=== PATIENT | male | born 1975 | race Caucasian/White ===

== ENCOUNTER 2018-03-25 10:02 | Inpatient (IN) | payer OTHER ==
[2018-03-25 11:32] VITALS: BMI 31.8
--- NOTE | 2018-03-25 15:17 | HP ---
"COWS - Scale Resting Pulse: 0= CO 80 or Below Sweatin= Beads of Sweat on Face Restless Observation: 1= Difficult to Sit Still Pupil Size: 2= Moderately Dilated Bone or Joint Aches: 1= Mild Discomfort Runny Nose/ Eye Tearin= None GI Upset > 30mins: 2= Nausea/Diarrhea Tremor Observation: 2= Slight Tremor Visible Yawning Observation: 1= 1-2x During Session Anxiety or Irritability: 1=Feels Anxious/Irritable Goose Flesh Skin: 0=Smooth Skin COWS Score: 13 CIWA Score - CIWA Score Nausea/Vomitin-Mild Nausea/No Vomiting Muscle Tremors: 4-Moderate,w/Arms Extend Anxiety: 1-Mildly Anxious Agitation: 1-Slight > Activity Paroxysmal Sweats: 4-Forehead w/Sweat Beads Orientation: 0-Oriented Tacttile Disturbances: 0-None Auditory Disturbances: 0-None Visual Disturbances: 0-None Headache: 2-Mild (r/t withdrawal) CIWA-Ar Total Score: 13 Admission ROS S - HPI Chief Complaint: Here for heroin and benzo street use. Allergies/Adverse Reactions: Allergies Allergy/AdvReac Type Severity Reaction Status Date / Time Fish Containing Products Allergy Severe Swelling Verified 03/25/18 13:09 No Known Drug Allergies Allergy Verified 03/25/18 16:13 History of Present Illness: Heroin use started at age 15. Currently uses IV. States does not share needles or works. Xanax use began at age 28 and Cocaine use began at age 34. Denies alcohol use. has been able to maintain sobriety x 2 years by avoiding people, places, things. Goal post discharge is rehab and out-patient meetings. Denies significant PMH. Search Terms: Abimael Benjamin, 1975 Search Date: 03/25/2018 03:13:47 PM The Drug Utilization Report below displays all of the controlled substance prescriptions, if any, that your patient has filled in the last twelve months. The information displayed on this report is compiled from pharmacy submissions to the Department, and accurately reflects the information as submitted by the pharmacies. This report was requested by: Nakita Peña | Reference #: [id number] There are no results for the search terms that you entered. x - Ebola screening Have you traveled outside of the country in the last 21 days: No Have you had contact with anyone from an Ebola affected area: No Have you been sick,other than usual withdrawal symptoms: No Do you have a fever: No - Review of Systems Constitutional: Chills, Diaphoresis, Changes in sleep (Difficulty falling asleep x years.) EENT: reports: Dental Problems (Missing teeth. Chews and swallow ok.) Respiratory: reports: No Symptoms reported, Other (Asthma as a child. No exacerbations in years.) Cardiac: reports: No Symptoms Reported GI: reports: Nausea (r/t withdrawal), Abdominal cramping (r/t withdrawal) : reports: No Symptoms Reported Musculoskeletal: reports: Back Pain (r/t withdrawal) Integumentary: reports: No Symptoms Reported Neuro: reports: Tremors (r/t withdrawal) Endocrine: reports: No Symptoms Reported Hematology: reports: No Symptoms Reported Psychiatric: reports: Orientated x3, Agitated, Anxious, Depressed (Depression for years. Denies thoughts of harming self or others.) Patient History - Patient Medical History Hx Asthma: Yes (As a child. ) Hx Chronic Obstructive Pulmonary Disease (COPD): No Hx Cardiac Disorders: No Hx Hypertension: No Hx Seizures: No Hx Diabetes: No Hx Gastrointestinal Disorders: No Hx Genitourinary Disorders: No Hx Sexually Transmitted Disorders: No Hx Renal Disease (ESRD): No Hx Depression: No Hx Suicide Attempt: No Hx Schizophrenia: No - Patient Surgical History Past Surgical History: No - PPD History Previous Implant?: Yes Documented Results: Negative w/o proof Implanted On Prior R Admission?: No PPD to be Administered?: Yes - Smoking Cessation Smoking history: Current every day smoker Have you smoked in the past 12 months: Yes Aproximately how many cigarettes per day: 20 Hx Chewing Tobacco Use: No Initiated information on smoking cessation: Yes 'Breaking Loose' booklet given: 03/25/18 - Substance & Tx. History Hx Alcohol Use: No Hx Substance Use: Yes Substance Use Type: Cocaine, Heroin, Opiates, Tranquilizers (Xanax) Hx Substance Use Treatment: Yes (Last detox 3 months ago) - Substances Abused Heroin Route: Injection Frequency: Daily Amount used: 20 BAGS Age of first use: 15 Date of Last Use: 03/24/18 (12 noon) Alprazolam (Xanax) Route: Oral Frequency: Daily Amount used: 4-6MG Age of first use: 38 Date of Last Use: 03/24/18 (12 noon) Cocaine Route: Inhalation Frequency: Daily Amount used: 1/2 GRAM Age of first use: 34 Date of Last Use: 03/24/18 Non-Rx Methadone Route: Oral Frequency: 1-3 times last 30 days Amount used: 130 mg Age of first use: 38 Date of Last Use: 03/23/18 (12 noon) Admission Physical Exam [facility] - Vital Signs Vital Signs: Vital Signs - 24 hr 03/25/18 11:30 Temperature 98.1 F Pulse Rate 62 Respiratory 20 Rate Blood Pressure 98/60 - Physical General Appearance: Yes: Mild Distress, Tremorous, Irritable, Sweating, Anxious HEENTM: Yes: EOMI, Hearing grossly Normal, JULIANNA (Pupils at 5 mm), Rhinorrhea ( mild clear nasal discharge) Respiratory: Yes: Chest Non-Tender, Lungs Clear, Normal Breath Sounds, No Respiratory Distress Neck: Yes: No masses,lesions,Nodules, Supple Breast: Yes: Breast Exam Deferred Cardiology: Yes: Regular Rhythm, Regular Rate, S1, S2 Abdominal: Yes: Non Tender, Soft, Increased Bowel Sounds Genitourinary: Yes: Within Normal Limits Back: Yes: Normal Inspection Musculoskeletal: Yes: full range of Motion, Gait Steady Extremities: Yes: Normal Capillary Refill, Normal Range of Motion, Tremors (of hands w/ arms extended) Neurological: Yes: supervisor policy change clerks II-XII NML intact, Motor Strength 5/5, Normal Response Integumentary: Yes: Normal Color, Dry (Except for sweat on forehead), Warm, Track Franks (Old and new. No increased warmth or tenderness at injection sites.) Lymphatic: Yes: Within Normal Limits - Diagnostic (1) Nicotine dependence, uncomplicated Current Visit: Yes Status: Chronic Qualifiers: Nicotine product type: cigarettes Qualified Code(s): F17.210 - Nicotine dependence, cigarettes, uncomplicated (2) Opioid dependence with withdrawal Current Visit: Yes Status: Acute (3) Benzodiazepine withdrawal without complication Current Visit: Yes Status: Acute (4) Cocaine dependence, uncomplicated Current Visit: Yes Status: Chronic Cleared for Admission [facility] - Detox or Rehab [facility] Level of Care: Medically Managed Detox Regimen/Protocol: Methadone/Valium [facility] Breath Alcohol Content Breath Alcohol Content: 0 Urine Drug Screen - Results Drug Screen Negative: No Urine Drug Screen Results: RACQUEL-Cocaine, OPI-Opiates, BZO-Benzodiazepines, MTD- Methadone, OXY-Oxycodone"
[2018-03-25] MEDS ORDERED: P-EPHED 60MG/TRIPROLIDI 2.5MG TABLET PO PRN (15:42)
[2018-03-25] MEDS ORDERED: MENTHOL/PHENOL 1 EACH UD MM PRN (15:42)
[2018-03-25] MEDS ORDERED: LOPERAMIDE HCL 2 MG CAPSULE PO PRN (15:42)
[2018-03-25] MEDS ORDERED: NICOTINE POLACRILEX 2 MG GUM BC PRN (15:42)
[2018-03-25] MEDS ORDERED: guaiFENesin/D-METHORPHAN HB 10 ML UNIT-DOSE CUPS PO PRN (15:42)
[2018-03-25] MEDS ORDERED: IBUPROFEN 400 MG TABLET (FP) PO PRN (15:42)
[2018-03-25] MEDS ORDERED: ACETAMINOPHEN 325 MG TABLET (FP) PO PRN (15:42)
[2018-03-25] MEDS ORDERED: MAGNESIUM HYDROX 2400MG/30ML ORAL SUSPENSION 30 ML CUP PO PRN (15:42)
[2018-03-25] MEDS ORDERED: MAG HYDROX/AL HYDROX/SIMETH 30 ML UNIT-DOSE CUP PO PRN (15:42)
[2018-03-25] MEDS ORDERED: MAGNESIUM CITRATE 300 ML BOTTLE PO PRN (15:42)
[2018-03-25] MEDS ORDERED: METHADONE HCL 10 MG TABLET (FOR DETOX USE ONLY) PO ONE ×2 (17:45→23:00)
[2018-03-25] MEDS ORDERED: diazePAM 5 MG TABLET PO ONE (17:45)
[2018-03-25] MEDS ORDERED: MELATONIN 5 MG TABLETS PO PRN (22:00)
[2018-03-25] MEDS: diazePAM 5 MG TABLET PO SCH (22:15)
[2018-03-25] MEDS: THIAMINE HCL 100 MG TABLET (FP) PO SCH (22:15)
[2018-03-26 02:00] LABS: URINE APPEARANCE TURBID; URINE BILIRUBIN NEGATIVE (<2.0 mg/dL); URINE COLOR YELLOW; URINE GLUCOSE (UA) NEGATIVE (NEGATIVE); URINE KETONE NEGATIVE (NEGATIVE); URINE LEUK ESTERASE NEGATIVE (NEGATIVE); URINE NITRITE NEGATIVE (NEGATIVE); URINE PROTEIN NEGATIVE (NEGATIVE); URINE UROBILINOGEN NEGATIVE mg/dL (0.2-1.0)
[2018-03-26] MEDS: diazePAM 5 MG TABLET PO SCH ×3 (05:16→22:41)
[2018-03-26] MEDS ORDERED: METHADONE HCL 10 MG TABLET (FOR DETOX USE ONLY) PO SCH (10:00)
--- NOTE | 2018-03-26 10:28 | EKG ---
Test Reason : Blood Pressure : / mmHG Vent. Rate : 049 BPM Atrial Rate : 049 BPM P-R Int : 186 ms QRS Dur : 094 ms QT Int : 468 ms P-R-T Axes : 056 055 032 degrees QTc Int : 422 ms SINUS BRADYCARDIA WITH SINUS ARRHYTHMIA OTHERWISE NORMAL ECG NO PREVIOUS ECGS AVAILABLE Confirmed by JULIA TRUONG, GREGORIO ([id number]) on 03/26/2018 10:28:22 AM Referred By: Confirmed By:GREGORIO DUMONT MD
[2018-03-26] MEDS: NICOTINE 21 MG/24 HOURS TOPICAL PATCH TD SCH (10:35)
[2018-03-26] MEDS: PRENATAL VITAMINS W/ FOLIC ACID TABLET (FP) PO SCH (10:35)
[2018-03-26 11:03] LABS: HEMATOCRIT 39.2 % (35.4-49); HEMOGLOBIN 13.1 GM/dL (11.7-16.9); MCH 31.8 pg (25.7-33.7); MCHC 33.5 g/dl (32.0-35.9); MEAN CELL VOLUME 94.9 fl (80-96); MEAN PLT VOLUME 9.8 fl (7.5-11.1); PLATELET COUNT 207 K/MM3 (134-434); RBC 4.13 M/mm3 (4.00-5.60); RDW 13.6 % (11.9-15.9); WHITE BLOOD COUNT 7.5 K/mm3 (4.0-10.0)
[2018-03-26 11:10] LABS: CHLORIDE 101 mmol/L (98-107); SODIUM 140 mmol/L (136-145)
[2018-03-26 11:25] LABS: ALBUMIN 3.6 g/dl (3.4-5.0); ALK PHOS 52 U/L (45-117); ANION GAP 10 MMOL/L (8-16); BILIRUBIN,TOTAL 0.7 mg/dL (0.2-1.0); BLOOD UREA NITROGEN 19 mg/dL (7-18); CALCIUM 8.7 mg/dL (8.5-10.1); CO2 29 mmol/L (21-32); CREATININE 1.1 mg/dL (0.7-1.3); GLUCOSE,RANDOM 80 mg/dL (74-106); SGOT/AST 42 U/L (15-37); SGPT/ALT 25 U/L (12-78); TOT PROT 7.3 g/dl (6.4-8.2)
--- NOTE | 2018-03-26 12:14 | PN ---
[facility] CIWA - CIWA Score Nausea/Vomitin Muscle Tremors: 3 Anxiety: 3 Agitation: 2 Paroxysmal Sweats: 1-Minimal Palms Moist Orientation: 0-Oriented Tacttile Disturbances: 1-Very Mild Itch/Numbness Auditory Disturbances: 1-Very Mild Visual Disturbances: 0-None Headache: 2-Mild CIWA-Ar Total Score: 16 [facility] COWS - Scale Resting Pulse: 0= ID 80 or Below Sweatin= Chills/Flushing Restless Observation: 3= Extraneous Movement Pupil Size: 1= Pupils >than Normal Bone or Joint Aches: 2= Severe Diffuse Aches Runny Nose/ Eye Tearin= Runny Nose/Eyes GI Upset > 30mins: 2= Nausea/Diarrhea Tremor Observation of Outstretched Hands: 2= Slight Tremor Visible Yawning Observation: 1= 1-2x During Session Anxiety or Irritability: 2=Irritable/Anxious Goose Flesh Skin: 0=Smooth Skin COWS Score: 16 [facility] Progress Note (SOAP) Subjective: alert,irritable,anxious,tremor,pain in the body and back Objective: 03/26/18 12:09 Vital Signs Temperature 98.1 F 03/26/18 11:26 Pulse Rate 55 L 03/26/18 11:26 Respiratory Rate 18 03/26/18 11:26 Blood Pressure 116/70 03/26/18 11:26 O2 Sat by Pulse Oximetry (%) ekg sinus bradycardia with sinus arrhythmia rate 49 qt/qtc 468/422 no chest pain,no sob,no dizziness Laboratory Last Values WBC 7.5 K/mm3 (4.0-10.0) 03/26/18 06:00 RBC 4.13 M/mm3 (4.00-5.60) 03/26/18 06:00 Hgb 13.1 GM/dL (11.7-16.9) 03/26/18 06:00 Hct 39.2 % (35.4-49) 03/26/18 06:00 MCV 94.9 fl (80-96) 03/26/18 06:00 MCH 31.8 pg (25.7-33.7) 03/26/18 06:00 MCHC 33.5 g/dl (32.0-35.9) 03/26/18 06:00 RDW 13.6 % (11.9-15.9) 03/26/18 06:00 Plt Count 207 K/MM3 (134-434) 03/26/18 06:00 MPV 9.8 fl (7.5-11.1) 03/26/18 06:00 Sodium 140 mmol/L (136-145) 03/26/18 06:00 Potassium 4.0 mmol/L (3.5-5.1) 03/26/18 06:00 Chloride 101 mmol/L (98-107) 03/26/18 06:00 Carbon Dioxide 29 mmol/L (21-32) 03/26/18 06:00 Anion Gap 10 MMOL/L (8-16) 03/26/18 06:00 BUN 19 mg/dL (7-18) H 03/26/18 06:00 Creatinine 1.1 mg/dL (0.7-1.3) 03/26/18 06:00 Creat Clearance w eGFR > 60 (>60) 03/26/18 06:00 Random Glucose 80 mg/dL (74-106) 03/26/18 06:00 Calcium 8.7 mg/dL (8.5-10.1) 03/26/18 06:00 Total Bilirubin 0.7 mg/dL (0.2-1.0) 03/26/18 06:00 AST 42 U/L (15-37) H 03/26/18 06:00 ALT 25 U/L (12-78) 03/26/18 06:00 Alkaline Phosphatase 52 U/L (45-117) 03/26/18 06:00 Total Protein 7.3 g/dl (6.4-8.2) 03/26/18 06:00 Albumin 3.6 g/dl (3.4-5.0) 03/26/18 06:00 Urine Color Yellow 03/26/18 00:45 Urine Appearance Turbid 03/26/18 00:45 Urine pH 6.0 (5.0-8.0) 03/26/18 00:45 Ur Specific [place] 1.032 (1.001-1.035) 03/26/18 00:45 Urine Protein Negative (NEGATIVE) 03/26/18 00:45 Urine Glucose (UA) Negative (NEGATIVE) 03/26/18 00:45 Urine Ketones Negative (NEGATIVE) 03/26/18 00:45 Urine Blood Negative (NEGATIVE) 03/26/18 00:45 Urine Nitrite Negative (NEGATIVE) 03/26/18 00:45 Urine Bilirubin Negative (<2.0 mg/dL) 03/26/18 00:45 Urine Urobilinogen Negative mg/dL (0.2-1.0) 03/26/18 00:45 Ur Leukocyte Esterase Negative (NEGATIVE) 03/26/18 00:45 Assessment: 03/26/18 12:14 withdrawal symptom Plan: continue detox
--- NOTE | 2018-03-26 15:02 | CONSULT ---
[facility] Psychiatric Consult - Data Date of interview: 03/26/18 Admission source: [facility] Identifying data: Rock Singer approached patient for psychiatric consultation. Pt. refused. Stated, " I don't feel good. I don't need to speak to you."
[2018-03-26] MEDS: diazePAM 5 MG TABLET PO PRN ×2 (15:59→20:11)
[2018-03-26] MEDS ORDERED: CYCLOBENZAPRINE HCL 10 MG TABLET (FP) PO ONE (16:45)
[2018-03-26] MEDS ORDERED: cloNIDine HCL 0.1 MG TABLET PO ONE (17:45)
[2018-03-26] MEDS: cloNIDine HCL 0.1 MG TABLET PO SCH (22:41)
[2018-03-26] MEDS: THIAMINE HCL 100 MG TABLET (FP) PO SCH (22:41)
[2018-03-27] MEDS: diazePAM 5 MG TABLET PO PRN ×4 (06:12→22:27)
[2018-03-27] MEDS: PRENATAL VITAMINS W/ FOLIC ACID TABLET (FP) PO SCH (09:51)
[2018-03-27] MEDS: cloNIDine HCL 0.1 MG TABLET PO SCH ×2 (09:51→21:37)
[2018-03-27] MEDS: diazePAM 5 MG TABLET PO SCH ×2 (09:52→22:27)
[2018-03-27] MEDS: METHADONE HCL 5 MG TABLET (FOR DETOX USE ONLY) PO SCH (09:52)
[2018-03-27] MEDS: NICOTINE 21 MG/24 HOURS TOPICAL PATCH TD SCH (09:52)
--- NOTE | 2018-03-27 11:08 | PN ---
[facility] CIWA - CIWA Score Nausea/Vomitin-Mild Nausea/No Vomiting Muscle Tremors: 4-Moderate,w/Arms Extend Anxiety: 4-Mod. Anxious/Guarded Agitation: 4-Moderately Restless Paroxysmal Sweats: 1-Minimal Palms Moist Orientation: 0-Oriented Tacttile Disturbances: 1-Very Mild Itch/Numbness Auditory Disturbances: 0-None Visual Disturbances: 0-None Headache: 0-None Present CIWA-Ar Total Score: 15 S COWS - Scale Resting Pulse: 0= SC 80 or Below Sweatin= Chills/Flushing Restless Observation: 1= Difficult to Sit Still Pupil Size: 0= Normal to Room Light Bone or Joint Aches: 2= Severe Diffuse Aches Runny Nose/ Eye Tearin= Runny Nose/Eyes GI Upset > 30mins: 2= Nausea/Diarrhea Tremor Observation of Outstretched Hands: 2= Slight Tremor Visible Yawning Observation: 1= 1-2x During Session Anxiety or Irritability: 1=Feels Anxious/Irritable Goose Flesh Skin: 3=Piloerection COWS Score: 15 [facility] Progress Note (SOAP) Subjective: joints pain body aches sweat tremor trouble sleep at night anxiety restlessness irritable agitative Objective: 03/27/18 11:12 Vital Signs Temperature 97.5 F L 03/27/18 09:17 Pulse Rate 60 03/27/18 09:17 Respiratory Rate 18 03/27/18 09:17 Blood Pressure 114/65 03/27/18 09:17 O2 Sat by Pulse Oximetry (%) Laboratory Last Values WBC 7.5 K/mm3 (4.0-10.0) 03/26/18 06:00 RBC 4.13 M/mm3 (4.00-5.60) 03/26/18 06:00 Hgb 13.1 GM/dL (11.7-16.9) 03/26/18 06:00 Hct 39.2 % (35.4-49) 03/26/18 06:00 MCV 94.9 fl (80-96) 03/26/18 06:00 MCH 31.8 pg (25.7-33.7) 03/26/18 06:00 MCHC 33.5 g/dl (32.0-35.9) 03/26/18 06:00 RDW 13.6 % (11.9-15.9) 03/26/18 06:00 Plt Count 207 K/MM3 (134-434) 03/26/18 06:00 MPV 9.8 fl (7.5-11.1) 03/26/18 06:00 Sodium 140 mmol/L (136-145) 03/26/18 06:00 Potassium 4.0 mmol/L (3.5-5.1) 03/26/18 06:00 Chloride 101 mmol/L (98-107) 03/26/18 06:00 Carbon Dioxide 29 mmol/L (21-32) 03/26/18 06:00 Anion Gap 10 MMOL/L (8-16) 03/26/18 06:00 BUN 19 mg/dL (7-18) H 03/26/18 06:00 Creatinine 1.1 mg/dL (0.7-1.3) 03/26/18 06:00 Creat Clearance w eGFR > 60 (>60) 03/26/18 06:00 Random Glucose 80 mg/dL (74-106) 03/26/18 06:00 Calcium 8.7 mg/dL (8.5-10.1) 03/26/18 06:00 Total Bilirubin 0.7 mg/dL (0.2-1.0) 03/26/18 06:00 AST 42 U/L (15-37) H 03/26/18 06:00 ALT 25 U/L (12-78) 03/26/18 06:00 Alkaline Phosphatase 52 U/L (45-117) 03/26/18 06:00 Total Protein 7.3 g/dl (6.4-8.2) 03/26/18 06:00 Albumin 3.6 g/dl (3.4-5.0) 03/26/18 06:00 Urine Color Yellow 03/26/18 00:45 Urine Appearance Turbid 03/26/18 00:45 Urine pH 6.0 (5.0-8.0) 03/26/18 00:45 Ur Specific [place] 1.032 (1.001-1.035) 03/26/18 00:45 Urine Protein Negative (NEGATIVE) 03/26/18 00:45 Urine Glucose (UA) Negative (NEGATIVE) 03/26/18 00:45 Urine Ketones Negative (NEGATIVE) 03/26/18 00:45 Urine Blood Negative (NEGATIVE) 03/26/18 00:45 Urine Nitrite Negative (NEGATIVE) 03/26/18 00:45 Urine Bilirubin Negative (<2.0 mg/dL) 03/26/18 00:45 Urine Urobilinogen Negative mg/dL (0.2-1.0) 03/26/18 00:45 Ur Leukocyte Esterase Negative (NEGATIVE) 03/26/18 00:45 RPR Titer Nonreactive (NONREACTIVE) 03/26/18 06:00 lab noted Assessment: 03/27/18 11:13 opiate and benzo withdrawal sx Plan: continue opiate and benzo detox
[2018-03-27] MEDS: CYCLOBENZAPRINE HCL 10 MG TABLET (FP) PO PRN (21:37)
[2018-03-27] MEDS: hydrOXYzine PAMOATE 50 MG CAPSULE (FP) PO PRN (21:37)
[2018-03-27] MEDS: THIAMINE HCL 100 MG TABLET (FP) PO SCH (22:27)
[2018-03-28] MEDS: CYCLOBENZAPRINE HCL 10 MG TABLET (FP) PO PRN (09:13)
[2018-03-28] MEDS: hydrOXYzine PAMOATE 50 MG CAPSULE (FP) PO PRN ×2 (09:13→15:21)
[2018-03-28] MEDS: diazePAM 5 MG TABLET PO PRN ×2 (09:15→15:20)
[2018-03-28] MEDS: diazePAM 5 MG TABLET PO SCH (10:00)
[2018-03-28] MEDS: NICOTINE 21 MG/24 HOURS TOPICAL PATCH TD SCH (10:42)
[2018-03-28] MEDS: METHADONE HCL 5 MG TABLET (FOR DETOX USE ONLY) PO SCH (10:42)
[2018-03-28] MEDS: cloNIDine HCL 0.1 MG TABLET PO SCH (10:42)
[2018-03-28] MEDS: PRENATAL VITAMINS W/ FOLIC ACID TABLET (FP) PO SCH (10:42)
--- NOTE | 2018-03-28 13:42 | PN ---
[facility] Progress Note (SOAP) Subjective: body aches muscle cramping trouble sleep at night sweat tremor restlessness Objective: 03/28/18 13:42 Vital Signs Temperature 97.2 F L 03/28/18 09:31 Pulse Rate 53 L 03/28/18 09:31 Respiratory Rate 18 03/28/18 09:31 Blood Pressure 148/92 03/28/18 09:31 O2 Sat by Pulse Oximetry (%) Laboratory Last Values WBC 7.5 K/mm3 (4.0-10.0) 03/26/18 06:00 RBC 4.13 M/mm3 (4.00-5.60) 03/26/18 06:00 Hgb 13.1 GM/dL (11.7-16.9) 03/26/18 06:00 Hct 39.2 % (35.4-49) 03/26/18 06:00 MCV 94.9 fl (80-96) 03/26/18 06:00 MCH 31.8 pg (25.7-33.7) 03/26/18 06:00 MCHC 33.5 g/dl (32.0-35.9) 03/26/18 06:00 RDW 13.6 % (11.9-15.9) 03/26/18 06:00 Plt Count 207 K/MM3 (134-434) 03/26/18 06:00 MPV 9.8 fl (7.5-11.1) 03/26/18 06:00 Sodium 140 mmol/L (136-145) 03/26/18 06:00 Potassium 4.0 mmol/L (3.5-5.1) 03/26/18 06:00 Chloride 101 mmol/L (98-107) 03/26/18 06:00 Carbon Dioxide 29 mmol/L (21-32) 03/26/18 06:00 Anion Gap 10 MMOL/L (8-16) 03/26/18 06:00 BUN 19 mg/dL (7-18) H 03/26/18 06:00 Creatinine 1.1 mg/dL (0.7-1.3) 03/26/18 06:00 Creat Clearance w eGFR > 60 (>60) 03/26/18 06:00 Random Glucose 80 mg/dL (74-106) 03/26/18 06:00 Calcium 8.7 mg/dL (8.5-10.1) 03/26/18 06:00 Total Bilirubin 0.7 mg/dL (0.2-1.0) 03/26/18 06:00 AST 42 U/L (15-37) H 03/26/18 06:00 ALT 25 U/L (12-78) 03/26/18 06:00 Alkaline Phosphatase 52 U/L (45-117) 03/26/18 06:00 Total Protein 7.3 g/dl (6.4-8.2) 03/26/18 06:00 Albumin 3.6 g/dl (3.4-5.0) 03/26/18 06:00 Urine Color Yellow 03/26/18 00:45 Urine Appearance Turbid 03/26/18 00:45 Urine pH 6.0 (5.0-8.0) 03/26/18 00:45 Ur Specific [place] 1.032 (1.001-1.035) 03/26/18 00:45 Urine Protein Negative (NEGATIVE) 03/26/18 00:45 Urine Glucose (UA) Negative (NEGATIVE) 03/26/18 00:45 Urine Ketones Negative (NEGATIVE) 03/26/18 00:45 Urine Blood Negative (NEGATIVE) 03/26/18 00:45 Urine Nitrite Negative (NEGATIVE) 03/26/18 00:45 Urine Bilirubin Negative (<2.0 mg/dL) 03/26/18 00:45 Urine Urobilinogen Negative mg/dL (0.2-1.0) 03/26/18 00:45 Ur Leukocyte Esterase Negative (NEGATIVE) 03/26/18 00:45 RPR Titer Nonreactive (NONREACTIVE) 03/26/18 06:00 lab noted Assessment: 03/28/18 13:42 withdrawal sx Plan: continue detox
[2018-03-28 17:47] VITALS: BP 102/62; PULSE 64; TEMP 98.4
--- NOTE | 2018-03-28 18:41 | PN ---
S Progress Note Note: Patient leaving AMA despite discussion on possibility of medication adjustments. Alert and oriented. Stable gait.
--- NOTE | 2018-03-28 18:41 | DS ---
[facility] Detox Discharge Summary Admission Date: 03/25/18 Discharge Date: 03/28/18 - History Present History: Opioid Dependence, Sedative Dependence Pertinent Past History: Heroin, cocaine and benzodiazepine use disorder. Nicotine use disorder. - Physical Exam Results Vital Signs: Vital Signs Temperature 98.4 F 03/28/18 17:47 Pulse Rate 64 03/28/18 17:47 Respiratory Rate 18 03/28/18 17:47 Blood Pressure 102/62 03/28/18 17:47 O2 Sat by Pulse Oximetry (%) Pertinent Admission Physical Exam Findings: Withdrawal symptoms. Laboratory Tests 03/26/18 03/26/18 03/26/18 00:45 06:00 06:00 WBC 7.5 RBC 4.13 Hgb 13.1 Hct 39.2 MCV 94.9 MCH 31.8 MCHC 33.5 RDW 13.6 Plt Count 207 MPV 9.8 Sodium 140 Potassium 4.0 Chloride 101 Carbon Dioxide 29 Anion Gap 10 BUN 19 H Creatinine 1.1 Creat Clearance w eGFR > 60 Random Glucose 80 Calcium 8.7 Total Bilirubin 0.7 AST 42 H ALT 25 Alkaline Phosphatase 52 Total Protein 7.3 Albumin 3.6 Urine Color Yellow Urine Appearance Turbid Urine pH 6.0 Ur Specific [place] 1.032 Urine Protein Negative Urine Glucose (UA) Negative Urine Ketones Negative Urine Blood Negative Urine Nitrite Negative Urine Bilirubin Negative Urine Urobilinogen Negative Ur Leukocyte Esterase Negative RPR Titer 03/26/18 06:00 WBC RBC Hgb Hct MCV MCH MCHC RDW Plt Count MPV Sodium Potassium Chloride Carbon Dioxide Anion Gap BUN Creatinine Creat Clearance w eGFR Random Glucose Calcium Total Bilirubin AST ALT Alkaline Phosphatase Total Protein Albumin Urine Color Urine Appearance Urine pH Ur Specific [place] Urine Protein Urine Glucose (UA) Urine Ketones Urine Blood Urine Nitrite Urine Bilirubin Urine Urobilinogen Ur Leukocyte Esterase RPR Titer Nonreactive Labs reviewed. - Treatment Hospital Course: Discharged Condition Good (Patient did not complete protocol. Alert and stable upon discharge. Discussed loss of tolerance, overdose risks and prevention.) Patient has Accepted a Rehab Referral to: Declined - Medication Discharge Medications: Ambulatory Orders Albuterol Sulfate Inhaler - [Ventolin Hfa Inhaler -] 2 inh PO Q4H PRN 03/25/18 - Diagnosis (1) Nicotine dependence, uncomplicated Current Visit: Yes Status: Chronic Qualifiers: Nicotine product type: cigarettes Qualified Code(s): F17.210 - Nicotine dependence, cigarettes, uncomplicated (2) Opioid dependence with withdrawal Current Visit: Yes Status: Acute (3) Benzodiazepine withdrawal without complication Current Visit: Yes Status: Acute (4) Cocaine dependence, uncomplicated Current Visit: Yes Status: Chronic - AMA Did Patient Leave Against Medical Advice: Yes (No longer wanted to continue treatment)
--- NOTE | 2018-03-28 21:30 | DS ---
[facility] Detox Discharge Summary Admission Date: 03/25/18 Discharge Date: 03/28/18 - History Present History: Cocaine Dependence, Opioid Dependence, Sedative Dependence - Physical Exam Results Vital Signs: Vital Signs Temperature 98.4 F 03/28/18 17:47 Pulse Rate 64 03/28/18 17:47 Respiratory Rate 18 03/28/18 17:47 Blood Pressure 102/62 03/28/18 17:47 O2 Sat by Pulse Oximetry (%) - Medication Discharge Medications: Ambulatory Orders Albuterol Sulfate Inhaler - [Ventolin Hfa Inhaler -] 2 inh PO Q4H PRN 03/25/18 - Diagnosis (1) Nicotine dependence, uncomplicated Current Visit: Yes Status: Chronic Qualifiers: Nicotine product type: cigarettes Qualified Code(s): F17.210 - Nicotine dependence, cigarettes, uncomplicated (2) Opioid dependence with withdrawal Current Visit: Yes Status: Acute (3) Benzodiazepine withdrawal without complication Current Visit: Yes Status: Acute (4) Cocaine dependence, uncomplicated Current Visit: Yes Status: Chronic
[2018-03-29] MEDS ORDERED: diazePAM 5 MG TABLET PO SCH (10:00)
[2018-03-29] MEDS ORDERED: METHADONE HCL 10 MG TABLET (FOR DETOX USE ONLY) PO SCH (10:00)
[2018-03-30] MEDS ORDERED: METHADONE HCL 5 MG TABLET (FOR DETOX USE ONLY) PO SCH (06:00)
== END 2018-03-28 18:25 | disposition left against medical advice (07) | DRG 770 ==
LOC: YASAS 10:02 → Y6N 17:26
PROC: HZ2ZZZZ Detoxification Services for Substance Abuse Treatment (ICD-10-PCS; principal; 2018-03-25)
DX: F11.23 Opioid dependence with withdrawal (principal); F13.230 Sedative, hypnotic or anxiolytic dependence with withdrawal, uncomplicated; F14.20 Cocaine dependence, uncomplicated; F17.210 Nicotine dependence, cigarettes, uncomplicated; Z87.09 Personal history of other diseases of the respiratory system
CPT/HCPCS: 36415; 80053; 81003; 85027; 86593; 93005; 93010; J0735

== ENCOUNTER 2020-01-26 10:13 | Inpatient (IN) | payer OTHER ==
--- NOTE | 2020-01-26 10:35 | [facility].RME ---
Substance Use & Tx History - Substance Use History Heroin Substance amount: 15-20 bags Frequency of use: Daily Substance route: Inhalation (ex: sniffing or snorting), Injection (ex: intravenous or skin popping) Date of Last Use: 01/25/20 Cocaine- Powder Substance amount: 1 gram Frequency of use: Less than 3 times per week Substance route: Inhalation (ex: sniffing or snorting) Date of Last Use: 01/24/20 Xanax Substance amount: 2mg 4-6 tabs Frequency of use: Daily Substance route: Oral Date of Last Use: 01/25/20 Nicotine Substance amount: 1 pack Frequency of use: Daily Substance route: Smoking Date of Last Use: 01/26/20 Physical/Psych/Mental Status - Behavior General Behavior: Decreased activity Eye Contact: Normal - Cooperativeness Cooperativeness: Cooperative - Thinking Thought Processes: Tight, Logical, Goal Directed - Physical Health Problems Is patient presently having any pain?: No Does patient presently have any injuries (include location): No Does patient currently have a fever: No Is patient : No COWS - Scale Resting Pulse: 0= CT 80 or Below Sweatin= Chills/Flushing Restless Observation: 1= Difficult to Sit Still Pupil Size: 1= Pupils >than Normal Bone or Joint Aches: 4=Acute Joint/Muscle Pain Runny Nose/ Eye Tearin= Runny Nose/Eyes GI Upset > 30mins: 2= Nausea/Diarrhea Tremor Observation: 1= Tremor [place], Not Seen Yawning Observation: 2= >3x During Session Anxiety or Irritability: 2=Irritable/Anxious Goose Flesh Skin: 3=Piloerection COWS Score: 19 CIWA Nausea/Vomitin Muscle Tremors: 2 Anxiety: 4-Mod. Anxious/Guarded Agitation: 2 Paroxysmal Sweats: 3 Orientation: 0-Oriented Tacttile Disturbances: 0-None Auditory Disturbances: 0-None Visual Disturbances: 0-None Headache: 2-Mild CIWA-Ar Total Score: 15
--- NOTE | 2020-01-26 11:32 | HP ---
COWS - Scale Resting Pulse: 0= CO 80 or Below Sweatin= Chills/Flushing Restless Observation: 1= Difficult to Sit Still Pupil Size: 1= Pupils >than Normal Bone or Joint Aches: 4=Acute Joint/Muscle Pain Runny Nose/ Eye Tearin= Runny Nose/Eyes GI Upset > 30mins: 2= Nausea/Diarrhea Tremor Observation: 1= Tremor [place], Not Seen Yawning Observation: 2= >3x During Session Anxiety or Irritability: 2=Irritable/Anxious Goose Flesh Skin: 3=Piloerection COWS Score: 19 CIWA Score Nausea/Vomitin Muscle Tremors: 2 Anxiety: 4-Mod. Anxious/Guarded Agitation: 2 Paroxysmal Sweats: 3 Orientation: 0-Oriented Tacttile Disturbances: 0-None Auditory Disturbances: 0-None Visual Disturbances: 0-None Headache: 2-Mild CIWA-Ar Total Score: 15 - Admission Criteria OASAS Guidelines: Admission for Medically Managed Detox: Requires at least one of the followin. CIWA greater than 12 2. Seizures within the past 24 hours 3. Delirium tremens within the past 24 hours 4. Hallucinations within the past 24 hours 5. Acute intervention needed for co occurring medical disorder 6. Acute intervention needed for co occurring psychiatric disorder 7. Severe withdrawal that cannot be handled at a lower level of care (continued vomiting, continued diarrhea, abnormal vital signs) requiring intravenous medication and/or fluids 8. Admitting History and Physical - Admission Chief Complaint: Mr. Benjamin is a 44 yo man who states he needs to be admitted to detox to "end the madness, it's a vicious cycle". History of Present Illness: Mr. Benjamin is a 44 yo man who states he needs to be admitted to detox to "end the madness, it's a vicious cycle". He was last here for detox in 2018. PMH: Asthma, no meds, Hep C not treated due to low VL PSH; none Psych: anxiety, PTSD, no meds, no provider SOC: lives [facility] [place] Legal: none Substance Use History Heroin Substance amount: 15-20 bags Frequency of use: Daily Substance route: Inhalation (ex: sniffing or snorting), Injection (ex: intravenous or skin popping) Date of Last Use: 07/01/20 Began age 14 y. OD x 3, last 3 most ago. Sometimes has Narcan at home Methadone last rx 5 years ago: 110 mg, [facility] Suboxone: tried 2-3 yeas ago with PMD Cocaine- Powder Substance amount: 1 gram Frequency of use: Less than 3 times per week Substance route: Inhalation (ex: sniffing or snorting) Date of Last Use: 01/24/20 Began age 14y Xanax Substance amount: 2mg 4-6 tabs Frequency of use: Daily Substance route: Oral Date of Last Use: 01/25/20 Began age 29y No hx seizures. Withdrawl sx when he stops. Blackouts. 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 Nicotine Substance amount: 1 pack Frequency of use: Daily Substance route: Smoking Date of Last Use: 01/26/20 began age 13y History Source: Patient Limitations to Obtaining History: No Limitations - Smoking History Smoking history: Current every day smoker Have you smoked in the past 12 months: Yes Aproximately how many cigarettes per day: 20 - Alcohol/Substance Use Hx Alcohol Use: No Admission ROS [facility] - [facility] Allergies/Adverse Reactions: Allergies Allergy/AdvReac Type Severity Reaction Status Date / Time Fish Containing Products Allergy Severe Swelling Verified 03/25/18 13:09 No Known Drug Allergies Allergy Verified 03/25/18 16:13 Exam Limitations: No Limitations - Ebola screening Have you traveled outside of the country in the last 21 days: No Have you been sick,other than usual withdrawal symptoms: No Do you have a fever: No - Review of Systems Constitutional: Other (weight gain: 15 lb in 3 mos) EENT: reports: No Symptoms Reported Respiratory: reports: No Symptoms reported Cardiac: reports: No Symptoms Reported GI: reports: Nausea : reports: No Symptoms Reported Musculoskeletal: reports: Back Pain (chronic LBP, herniated and bulging discs L1, L5) Integumentary: reports: No Symptoms Reported Neuro: reports: Headache Endocrine: reports: No Symptoms Reported Hematology: reports: No Symptoms Reported Psychiatric: reports: Anxious Patient History - Patient Medical History Hx Asthma: Yes (As a child. ) Hx Chronic Obstructive Pulmonary Disease (COPD): No Hx Cardiac Disorders: No Hx Hypertension: No Hx Seizures: No Hx Diabetes: No Hx Gastrointestinal Disorders: No Hx Genitourinary Disorders: No Hx Sexually Transmitted Disorders: No Hx Renal Disease (ESRD): No Hx Depression: No Hx Suicide Attempt: No Hx Schizophrenia: No - Patient Surgical History Past Surgical History: No - PPD History Date: 03/27/18 - Smoking Cessation Smoking history: Current every day smoker Have you smoked in the past 12 months: Yes Aproximately how many cigarettes per day: 20 Hx Chewing Tobacco Use: No Initiated information on smoking cessation: Yes 'Breaking Loose' booklet given: 01/26/20 Admission Physical Exam [facility] - Physical General Appearance: Yes: Nourished, Irritable, Anxious HEENTM: Yes: EOMI, Hearing grossly Normal, Normocephalic, Normal Voice Respiratory: Yes: Lungs Clear, Normal Breath Sounds Neck: Yes: Within Normal Limits, Supple Breast: Yes: Breast Exam Deferred Cardiology: Yes: Regular Rhythm, Regular Rate, S1, S2 Abdominal: Yes: Soft (mild diffuse tenderness), Decreased BS, Tenderness Genitourinary: Yes: Other (deferred) Back: Yes: Normal Inspection Musculoskeletal: Yes: full range of Motion, Gait Steady Extremities: Yes: Normal Inspection, Non-Tender Neurological: Yes: Alert, Normal Response Integumentary: Yes: Other (injection sites in antecubital fossa clean. Multiple bruises on lef and right anterior leg, scab left elbow, errythema left forearm from "fell 3 days ago") - Diagnostic (1) Asthma Current Visit: No Status: Chronic (2) Hepatitis C Current Visit: No Status: Chronic (3) Anxiety Current Visit: Yes Status: Chronic (4) PTSD (post-traumatic stress disorder) Current Visit: Yes Status: Chronic (5) Benzodiazepine withdrawal without complication Current Visit: Yes Status: Acute (6) Opioid dependence with withdrawal Current Visit: Yes Status: Acute (7) Cocaine dependence, uncomplicated Current Visit: Yes Status: Acute (8) Nicotine dependence, uncomplicated Current Visit: Yes Status: Acute Qualifiers: Nicotine product type: cigarettes Qualified Code(s): F17.210 - Nicotine dependence, cigarettes, uncomplicated Cleared for Admission [facility] - Detox or Rehab [facility] Level of Care: Medically Managed Detox Regimen/Protocol: Ativan, Methadone Breathalyzer - Breathalyzer Breathalyzer: 0 Urine Drug Screen - Test Device Lot number: [id number] Expiration date: 03/26/21 - Control Is test valid?: Yes - Results Drug screen NEGATIVE: No Urine drug screen results: RACQUEL-Cocaine, FEN-Fentanyl, MOP-Opiates, MTD- Methadone, BZO-Benzodiazepines Inpatient Rehab Admission - Rehab Decision to Admit Inpatient rehab admission?: No
[2020-01-26] MEDS ORDERED: cloNIDine HCL 0.1 MG TABLET PO PRN (11:36)
[2020-01-26] MEDS ORDERED: MENTHOL/PHENOL 1 EACH UD MM PRN (11:36)
[2020-01-26] MEDS ORDERED: MAGNESIUM CITRATE 300 ML BOTTLE PO PRN (11:36)
[2020-01-26] MEDS ORDERED: IBUPROFEN 400 MG TABLET (FP) PO PRN (11:36)
[2020-01-26] MEDS ORDERED: METHOCARBAMOL 500 MG TABLET PO PRN (11:36)
[2020-01-26] MEDS ORDERED: ONDANSETRON *ODT* 4 MG TABLET SL PRN (11:36)
[2020-01-26] MEDS ORDERED: NICOTINE POLACRILEX 2 MG GUM BUC PRN (11:36)
[2020-01-26] MEDS ORDERED: MAG HYDROX/AL HYDROX/SIMETH 30 ML UNIT-DOSE CUP PO PRN (11:36)
[2020-01-26] MEDS ORDERED: BISMUTH SUBSALICYLATE 524 MG/30 ML UD PO PRN (11:36)
[2020-01-26] MEDS ORDERED: ACETAMINOPHEN 325 MG TABLET (FP) PO PRN ×2 (11:36)
[2020-01-26] MEDS ORDERED: MAGNESIUM HYDROX 2400MG/30ML ORAL SUSPENSION 30 ML CUP PO PRN (11:36)
[2020-01-26 11:46] VITALS: BMI 31.8
[2020-01-26] MEDS ORDERED: METHADONE HCL 10 MG TABLET (FOR DETOX USE ONLY) PO ONE (12:00)
[2020-01-26] MEDS: PRENATAL VITAMINS W/ FOLIC ACID TABLET (FP) PO SCH (13:16)
[2020-01-26] MEDS: LORazepam 1 MG TABLET PO PRN (13:16)
[2020-01-26] MEDS: NICOTINE 21 MG/24 HOURS TOPICAL PATCH TD SCH (13:21)
[2020-01-26] MEDS: hydrOXYzine PAMOATE 25 MG CAPSULE (FP) PO SCH ×3 (14:04→22:00)
--- NOTE | 2020-01-26 14:09 | EKG ---
Test Reason : Blood Pressure : / mmHG Vent. Rate : 077 BPM Atrial Rate : 077 BPM P-R Int : 176 ms QRS Dur : 102 ms QT Int : 406 ms P-R-T Axes : 051 058 027 degrees QTc Int : 459 ms NORMAL SINUS RHYTHM NORMAL ECG WHEN COMPARED WITH ECG OF 25-MAR-2018 18:17, VENT. RATE HAS INCREASED BY 28 BPM Confirmed by JESSIKA LOPES MD ([id number]) on 01/26/2020 2:08:55 PM Referred By: Confirmed By:JESSIKA LOPES MD
--- NOTE | 2020-01-26 14:11 | CONSULT ---
[facility] Psychiatric Consult - Data Date of interview: 01/26/20 Admission source: [facility] Identifying data: Patient is a 44 year old single male, father of one, unemployed, domiciled, but is not currently receiving financial assistance. This is one of multiple admissions for patient. Patient admitted to for cocaine, opiate, and benzodiazepine dependence. Substance Abuse History: Substance Use History. Heroin. Substance amount: 15-20 bags. Frequency of use: Daily. Substance route: Inhalation (ex: sniffing or snorting), Injection (ex: intravenous or skin popping). Date of Last Use: 01/25/20. Began age 14 y. OD x 3, last 3 most ago. Sometimes has Narcan at home. Methadone last rx 5 years ago: 110 mg, [facility]. Suboxone: tried 2-3 yeas ago with PMD. Cocaine- Powder. Substance amount: 1 gram. Frequency of use: Less than 3 times per week. Substance route: Inhalation (ex: sniffing or snorting). Date of Last Use: 01/24/20. Began age 14y. Xanax. Substance amount: 2mg 4-6 tabs. Frequency of use: Daily. Substance route: Oral. Date of Last Use: 01/25/20. Began age 29y. No hx seizures. Withdrawl sx when he stops. Blackouts. 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 Nicotine. Substance amount: 1 pack. Frequency of use: Daily. Substance route: Smoking. Date of Last Use: 01/26/20. began age 13y. History Source: Patient. Limitations to Obtaining History: No Limitations Medical History: Asthma, Hep C Psychiatric History: Patient denies history of psychiatric hospitalization and suicide attempt. States that his first psychiatric contact occured two years ago at a private clinic in the [place] due to his history of anxiety and was prescribed klonopin. Mr. Benjamin has not seen his psychiatrist in approximately four months. At present patient presents as sleepy/fatigue and is c/o difficulty sleeping. Physical/Sexual Abuse/Trauma History: denies. Mental Status Exam - Mental Status Exam Alert and Oriented to: Time, Place, Person Cognitive Function: Good Patient Appearance: Well Groomed Mood: Withdrawn Affect: Mood Congruent Patient Behavior: Fatigued, Asleep Speech Pattern: Delayed (Patient needed to be awaken several times to complete assessment. ) Voice Loudness: Mildly Soft/Quiet Thought Process: Goal Oriented Thought Disorder: Not Present Hallucinations: Denies Suicidal Ideation: Denies Homicidal Ideation: Denies Insight/Judgement: Poor Sleep: Poorly Appetite: Fair Muscle strength/Tone: Normal Gait/Station: Other (Did not see patient's gait.) Psychiatric Findings - Problem List ([place] 1, 2,3) (1) Benzodiazepine withdrawal without complication Current Visit: Yes Status: Acute (2) Cocaine dependence, uncomplicated Current Visit: Yes Status: Acute (3) Nicotine dependence, uncomplicated Current Visit: Yes Status: Acute Qualifiers: Nicotine product type: cigarettes Qualified Code(s): F17.210 - Nicotine dependence, cigarettes, uncomplicated (4) Substance-induced sleep disorder Current Visit: Yes Status: Acute (5) Substance-induced anxiety disorder Current Visit: Yes Status: Acute - Initial Treatment Plan Initial Treatment Plan: Psychoeducation provided. Detoxification in progress. Will order Belsomra 10mg HS PRN. Benefits and side effects discussed. Verbal consent given.
[2020-01-26 16:36] LABS: HEMOGLOBIN 12.6 GM/dL (11.7-16.9); MCH 31.3 pg (25.7-33.7); MCHC 33.2 g/dl (32.0-35.9); MEAN CELL VOLUME 94.2 fl (80-96); MEAN PLT VOLUME 9.1 fl (7.5-11.1); PLATELET COUNT 237 K/MM3 (134-434); RBC 4.03 M/mm3 (4.00-5.60); RDW 14.8 % (11.9-15.9); WHITE BLOOD COUNT 7.8 K/mm3 (4.0-10.0)
[2020-01-26 16:40] LABS: ALBUMIN 3.6 g/dl (3.4-5.0); BILIRUBIN,TOTAL 0.4 mg/dL (0.2-1); BLOOD UREA NITROGEN 18.7 mg/dL (7-18); CREATININE 1.1 mg/dL (0.55-1.3); POTASSIUM 4.5 mmol/L (3.5-5.1); TOT PROT 7.2 g/dl (6.4-8.2)
[2020-01-26] MEDS ORDERED: LORazepam 2 MG TABLET PO SCH (17:00)
[2020-01-26] MEDS ORDERED: LORazepam 1 MG TABLET PO SCH (17:06)
[2020-01-26] MEDS: LORazepam 1 MG TABLET PO SCH ×2 (17:57→22:00)
[2020-01-26] MEDS: THIAMINE HCL 100 MG TABLET (FP) PO SCH (22:00)
[2020-01-26] MEDS ORDERED: SUVOREXANT 10 MG TABLET PO PRN (22:00)
[2020-01-26] MEDS: MELATONIN 5 MG TABLETS PO SCH (22:02)
[2020-01-27] MEDS: LORazepam 1 MG TABLET PO SCH ×4 (05:32→22:19)
[2020-01-27] MEDS: hydrOXYzine PAMOATE 25 MG CAPSULE (FP) PO SCH ×5 (05:32→22:34)
[2020-01-27] MEDS ORDERED: METHADONE HCL 5 MG TABLET (FOR DETOX USE ONLY) ONE (08:41)
[2020-01-27] MEDS: LORazepam 1 MG TABLET PO PRN ×2 (08:41→14:46)
[2020-01-27] MEDS ORDERED: METHADONE HCL 10 MG TABLET (FOR DETOX USE ONLY) ONE (08:41)
--- NOTE | 2020-01-27 09:50 | PN ---
BHS COWS - Scale Resting Pulse: 0= MD 80 or Below Sweatin= Chills/Flushing Restless Observation: 0= Sits Still Pupil Size: 0= Normal to Room Light Bone or Joint Aches: 1= Mild Discomfort Runny Nose/ Eye Tearin= Nasal Congestion GI Upset > 30mins: 0= None Tremor Observation of Outstretched Hands: 0= None Yawning Observation: 0= None Anxiety or Irritability: 1=Feels Anxious/Irritable Goose Flesh Skin: 0=Smooth Skin COWS Score: 4 BHS Progress Note (SOAP) Subjective: Mild anxiety, bone aches Objective: 01/27/20 09:47 PE Gnl: WDWN, in no distress MS: nl Motor: no tremor Coord: nl Home Medication List Medication Instructions Recorded Confirmed Type Albuterol Sulfate Inhaler - 2 inh PO Q4H PRN 03/25/18 01/26/20 History [Ventolin Hfa Inhaler -] Active Medications Generic Name Dose Route Start Last Admin Trade Name Freq PRN Reason Stop Dose Admin Acetaminophen 650 mg 01/26/20 11:36 Tylenol - PO Q6H PRN PAIN LEVEL 4 - 6 Acetaminophen 650 mg 01/26/20 11:36 Tylenol - PO Q6H PRN FEVER Al Hydroxide/Mg Hydroxide 30 ml 01/26/20 11:36 Mylanta Oral Suspension - PO Q6H PRN DYSPEPSIA Bismuth Subsalicylate 524 mg 01/26/20 11:36 Pepto-Bismol - PO Q1H PRN DIARRHEA Clonidine 0.1 mg 01/26/20 11:36 Catapres - PO 01/28/20 23:59 Q4H PRN Withdrawal Symptoms Eucalyptus/Menthol/Phenol/Sorbitol 1 each 01/26/20 11:36 Cepastat Lozenge - MM 02/01/20 11:37 Q4H PRN SORE THROAT Hydroxyzine Pamoate 25 mg 01/26/20 14:00 01/27/20 05:32 Vistaril - PO 02/01/20 11:36 25 mg Q4HWA DONNELL Administration Ibuprofen 400 mg 01/26/20 11:36 Motrin - PO Q6H PRN PAIN LEVEL 1 - 3 Lorazepam 1 mg 01/28/20 05:00 Ativan - PO 01/28/20 23:01 0500,1100,1700,2300 DONNELL Lorazepam 1 mg 01/26/20 11:36 01/26/20 13:16 Ativan - PO 01/28/20 23:59 1 mg Q4H PRN Administration Symptoms of Withdrawal Lorazepam 0.5 mg 01/29/20 05:00 Ativan - PO 01/29/20 23:01 Q6H DONNELL Lorazepam 0.5 mg 01/29/20 00:00 Ativan - PO 01/30/20 00:00 Q4H PRN Symptoms of Withdrawal Lorazepam 0.5 mg 01/30/20 05:00 Ativan - PO 01/30/20 05:01 ONCE ONE Lorazepam 2 mg 01/26/20 17:30 01/27/20 05:32 Ativan - PO 01/27/20 23:01 2 mg 0500,1100,1700,2300 DONNELL Administration Magnesium Citrate 300 ml 01/26/20 11:36 Citroma - PO Q48H PRN CONSTIPATION Magnesium Hydroxide 30 ml 01/26/20 11:36 Milk Of Magnesia - PO PRN PRN CONSTIPATION Melatonin 5 mg 01/26/20 22:00 01/26/20 22:02 Melatonin PO 5 mg HS DONNELL Administration Methadone HCl 5 mg 01/31/20 06:00 Dolophine - PO 01/31/20 06:01 ONCE@0600 ONE Methadone HCl 10 mg 01/30/20 10:00 Dolophine - PO 01/30/20 10:01 ONCE ONE Methadone HCl 20 mg 01/28/20 10:00 Dolophine - PO 01/28/20 10:01 ONCE ONE Methadone HCl 20 mg/ Methadone 25 mg 01/27/20 10:00 HCl 5 mg PO 01/27/20 10:01 ONCE ONE Methadone HCl 10 mg/ Methadone 15 mg 01/29/20 10:00 HCl 5 mg PO 01/29/20 10:01 ONCE ONE Methocarbamol 500 mg 01/26/20 11:36 Robaxin - PO 02/01/20 11:37 Q6H PRN MUSCLE SPASMS Nicotine 21 mg 01/26/20 12:00 01/26/20 13:21 Nicoderm Patch - TD Not Given DAILY DONNELL Nicotine Polacrilex 2 mg 01/26/20 11:36 Nicorette Gum - BUC Q2H PRN NICOTINE REPLACEMENT RX Ondansetron HCl 4 mg 01/26/20 11:36 Zofran Odt - SL 02/01/20 11:38 TID PRN Nausea/Vomiting Multivit/Folic Acid/Iron 1 tab 01/26/20 11:45 01/26/20 13:16 Vitamins (Sjr) - PO 1 tab DAILY DONNELL Administration Suvorexant 10 mg 01/26/20 22:00 Belsomra PO 01/29/20 21:59 HS PRN INSOMNIA Thiamine HCl 100 mg 01/26/20 22:00 01/26/20 22:00 Vitamin B1 - PO 100 mg HS DONNELL Administration Laboratory Tests 01/26/20 01/26/20 01/26/20 12:20 12:20 12:20 WBC 7.8 RBC 4.03 Hgb 12.6 Hct 38.0 MCV 94.2 MCH 31.3 MCHC 33.2 RDW 14.8 Plt Count 237 MPV 9.1 Sodium 138 Potassium 4.5 Chloride 99 Carbon Dioxide 34 H Anion Gap 5 L BUN 18.7 H Creatinine 1.1 Est GFR (CKD-EPI)AfAm 93.47 Est GFR (CKD-EPI)NonAf 80.64 Random Glucose 73 L Calcium 9.0 Total Bilirubin 0.4 AST 45 H ALT 36 Alkaline Phosphatase 60 Total Protein 7.2 Albumin 3.6 Syphilis Serology Non-reactive Vital Signs Temperature 97.5 F L 01/27/20 08:54 Pulse Rate 69 01/27/20 08:54 Respiratory Rate 18 01/27/20 08:54 Blood Pressure 101/66 01/27/20 08:54 O2 Sat by Pulse Oximetry (%) 98 01/27/20 05:28 Assessment: 1. Opioid use disorder 2. Cocaine use disorder 3. Benzodiazepine use disorder 4. Nicotine use disorder 5. Asthma 6. Hep C not treated due to low VL 7. Anxiety, PTSD Plan: 1. Methadone protocol 2. Ativan protocol 3. Nicoderm 4. Belsomra ordered by GERALDO Ch
[2020-01-27] MEDS ORDERED: METHADONE (DETOX) 20 MG, METHADONE (DETOX) 5 MG PO ONE (10:00)
[2020-01-27] MEDS: PRENATAL VITAMINS W/ FOLIC ACID TABLET (FP) PO SCH (10:15)
[2020-01-27] MEDS: NICOTINE 21 MG/24 HOURS TOPICAL PATCH TD SCH (10:16)
[2020-01-27] MEDS: THIAMINE HCL 100 MG TABLET (FP) PO SCH (22:19)
[2020-01-27] MEDS: MELATONIN 5 MG TABLETS PO SCH (22:20)
[2020-01-28] MEDS: hydrOXYzine PAMOATE 25 MG CAPSULE (FP) PO SCH ×5 (05:25→22:08)
[2020-01-28] MEDS: LORazepam 1 MG TABLET PO PRN (05:25)
[2020-01-28] MEDS: LORazepam 1 MG TABLET PO SCH ×4 (06:10→22:08)
[2020-01-28] MEDS ORDERED: METHADONE HCL 10 MG TABLET (FOR DETOX USE ONLY) PO ONE (10:00)
[2020-01-28] MEDS: NICOTINE 21 MG/24 HOURS TOPICAL PATCH TD SCH (10:21)
[2020-01-28] MEDS: PRENATAL VITAMINS W/ FOLIC ACID TABLET (FP) PO SCH (10:21)
--- NOTE | 2020-01-28 10:28 | PN ---
S CIWA - CIWA Score Nausea/Vomitin-No Nausea/No Vomiting Muscle Tremors: None Anxiety: 3 Agitation: 1-Slight > Activity Paroxysmal Sweats: 3 Orientation: 0-Oriented Tacttile Disturbances: 0-None Auditory Disturbances: 0-None Visual Disturbances: 0-None Headache: 2-Mild CIWA-Ar Total Score: 9 S COWS - Scale Resting Pulse: 0= ND 80 or Below Sweatin= Beads of Sweat on Face Restless Observation: 1= Difficult to Sit Still Pupil Size: 0= Normal to Room Light Bone or Joint Aches: 2= Severe Diffuse Aches Runny Nose/ Eye Tearin= None GI Upset > 30mins: 0= None Tremor Observation of Outstretched Hands: 0= None Yawning Observation: 1= 1-2x During Session Anxiety or Irritability: 2=Irritable/Anxious Goose Flesh Skin: 0=Smooth Skin COWS Score: 9 S Progress Note (SOAP) Subjective: c/o anxiety, irritability, sweats, headache, and muscle aches. Objective: 01/28/20 10:26 Vital Signs 01/28/20 01/28/20 01/28/20 03:17 05:20 06:30 Temperature 98.0 F Pulse Rate 59 L Respiratory 16 16 18 Rate Blood Pressure 99/66 O2 Sat by Pulse 98 Oximetry (%) 01/28/20 09:13 Temperature 97.1 F L Pulse Rate 63 Respiratory 18 Rate Blood Pressure 126/80 O2 Sat by Pulse Oximetry (%) Laboratory Last Values WBC 7.8 K/mm3 (4.0-10.0) 01/26/20 12:20 RBC 4.03 M/mm3 (4.00-5.60) 01/26/20 12:20 Hgb 12.6 GM/dL (11.7-16.9) 01/26/20 12:20 Hct 38.0 % (35.4-49) 01/26/20 12:20 MCV 94.2 fl (80-96) 01/26/20 12:20 MCH 31.3 pg (25.7-33.7) 01/26/20 12:20 MCHC 33.2 g/dl (32.0-35.9) 01/26/20 12:20 RDW 14.8 % (11.9-15.9) 01/26/20 12:20 Plt Count 237 K/MM3 (134-434) 01/26/20 12:20 MPV 9.1 fl (7.5-11.1) 01/26/20 12:20 Sodium 138 mmol/L (136-145) 01/26/20 12:20 Potassium 4.5 mmol/L (3.5-5.1) 01/26/20 12:20 Chloride 99 mmol/L (98-107) 01/26/20 12:20 Carbon Dioxide 34 mmol/L (21-32) H 01/26/20 12:20 Anion Gap 5 MMOL/L (8-16) L 01/26/20 12:20 BUN 18.7 mg/dL (7-18) H 01/26/20 12:20 Creatinine 1.1 mg/dL (0.55-1.3) 01/26/20 12:20 Est GFR (CKD-EPI)AfAm 93.47 01/26/20 12:20 Est GFR (CKD-EPI)NonAf 80.64 01/26/20 12:20 Random Glucose 73 mg/dL (74-106) L 01/26/20 12:20 Calcium 9.0 mg/dL (8.5-10.1) 01/26/20 12:20 Total Bilirubin 0.4 mg/dL (0.2-1) 01/26/20 12:20 AST 45 U/L (15-37) H 01/26/20 12:20 ALT 36 U/L (13-61) 01/26/20 12:20 Alkaline Phosphatase 60 U/L (45-117) 01/26/20 12:20 Total Protein 7.2 g/dl (6.4-8.2) 01/26/20 12:20 Albumin 3.6 g/dl (3.4-5.0) 01/26/20 12:20 Syphilis Serology Non-reactive (NONREACTIVE) 01/26/20 12:20 COVID-19 (JOCE) Not detected (Not Detected) 01/26/20 12:20 Labs noted. Assessment: AOX3, in no acute respiratory distress. Full ROM, ambulating in the unit. Withdrawal symptoms. Plan: continue detox.
[2020-01-28] MEDS: MELATONIN 5 MG TABLETS PO SCH (22:08)
[2020-01-28] MEDS: THIAMINE HCL 100 MG TABLET (FP) PO SCH (22:09)
[2020-01-29] MEDS ORDERED: LORazepam 0.5 MG TABLET PO PRN
[2020-01-29] MEDS: LORazepam 0.5 MG TABLET PO SCH ×2 (05:53→09:59)
[2020-01-29] MEDS: hydrOXYzine PAMOATE 25 MG CAPSULE (FP) PO SCH ×3 (05:53→14:28)
--- NOTE | 2020-01-29 09:12 | PN ---
S CIWA - CIWA Score Nausea/Vomitin-Mild Nausea/No Vomiting Muscle Tremors: 1-None Visible, but [place] Anxiety: 1-Mildly Anxious Agitation: 1-Slight > Activity Paroxysmal Sweats: 1-Minimal Palms Moist Orientation: 0-Oriented Tacttile Disturbances: 0-None Auditory Disturbances: 0-None Visual Disturbances: 0-None Headache: 1-Very Mild CIWA-Ar Total Score: 6 BHS COWS - Scale Resting Pulse: 0= SD 80 or Below Sweatin= No chills or Flushing Restless Observation: 0= Sits Still Pupil Size: 1= Pupils >than Normal Bone or Joint Aches: 1= Mild Discomfort Runny Nose/ Eye Tearin= None GI Upset > 30mins: 1= Stomach Cramp Tremor Observation of Outstretched Hands: 1= Tremor [place], Not Seen Yawning Observation: 0= None Anxiety or Irritability: 2=Irritable/Anxious Goose Flesh Skin: 0=Smooth Skin COWS Score: 6 S Progress Note (SOAP) Subjective: 44 years old male admitted on 01/27/20 for benzo and opiate withdrawal sx management treating with ativan and methadone detox regiments feeling ok today ate breakfast resting in bed reports muscle aches robaxin 500 mg po x 1 Objective: 01/29/20 09:17 Vital Signs - 24 hr 01/28/20 01/28/20 01/28/20 12:30 16:54 20:35 Temperature 97.2 F L 97.7 F 97.7 F Pulse Rate 68 71 77 Respiratory 18 18 18 Rate Blood Pressure 125/77 102/66 110/72 O2 Sat by Pulse 98 Oximetry (%) 01/29/20 01/29/20 01/29/20 00:30 03:32 05:52 Temperature 97.5 F L Pulse Rate 59 L Respiratory 18 16 18 Rate Blood Pressure 102/70 O2 Sat by Pulse 98 Oximetry (%) Laboratory Tests 01/26/20 01/26/20 01/26/20 12:20 12:20 12:20 WBC 7.8 RBC 4.03 Hgb 12.6 Hct 38.0 MCV 94.2 MCH 31.3 MCHC 33.2 RDW 14.8 Plt Count 237 MPV 9.1 Sodium 138 Potassium 4.5 Chloride 99 Carbon Dioxide 34 H Anion Gap 5 L BUN 18.7 H Creatinine 1.1 Est GFR (CKD-EPI)AfAm 93.47 Est GFR (CKD-EPI)NonAf 80.64 Random Glucose 73 L Calcium 9.0 Total Bilirubin 0.4 AST 45 H ALT 36 Alkaline Phosphatase 60 Total Protein 7.2 Albumin 3.6 Syphilis Serology Non-reactive COVID-19 (JOCE) 01/26/20 12:20 WBC RBC Hgb Hct MCV MCH MCHC RDW Plt Count MPV Sodium Potassium Chloride Carbon Dioxide Anion Gap BUN Creatinine Est GFR (CKD-EPI)AfAm Est GFR (CKD-EPI)NonAf Random Glucose Calcium Total Bilirubin AST ALT Alkaline Phosphatase Total Protein Albumin Syphilis Serology COVID-19 (JOCE) Not detected lab noted Assessment: 01/29/20 09:17 benzo and opiate withdrawal Plan: ativan and methadone regiments
[2020-01-29 09:18] VITALS: BP 141/75; PULSE 81; TEMP 97.3
[2020-01-29] MEDS ORDERED: METHADONE HCL 10 MG TABLET (FOR DETOX USE ONLY) ONE (09:20)
[2020-01-29] MEDS ORDERED: METHADONE HCL 5 MG TABLET (FOR DETOX USE ONLY) ONE (09:20)
[2020-01-29] MEDS: PRENATAL VITAMINS W/ FOLIC ACID TABLET (FP) PO SCH (09:59)
[2020-01-29] MEDS ORDERED: METHOCARBAMOL 500 MG TABLET PO ONE (10:00)
[2020-01-29] MEDS ORDERED: METHADONE (DETOX) 10 MG, METHADONE (DETOX) 5 MG PO ONE (10:00)
[2020-01-29] MEDS: NICOTINE 21 MG/24 HOURS TOPICAL PATCH TD SCH (10:00)
--- NOTE | 2020-01-29 15:55 | DS ---
[facility] Detox Discharge Summary Admission Date: 01/26/20 Discharge Date: 01/29/20 - History Present History: Alcohol Dependence, Sedative Dependence Additional Comments: 44 years old male admitted on 01/27/20 for benzo and opiate withdrawal sx management treated with ativan and methadone detox regiments feeling better today mr mora prefers to leave the detox to home with his mother seen by psychiatrist nicolette for insomnia alert oriented x 3 speech clearly coherently denies suicidal no homocidal ideation no self destructive behavioral mr mora said that he is going to [facility] abuse for his benzo and opiate recovery positive methadone in urine tox upon admission encourage to consider medication assisted treatment program and picking up narcan from pharmacy cardiac s1s2 regular rate rhythm respiratory clear lung sounds bilaterally on auscultation abdomen soft round obese no rebound tenderness Pertinent Past History: time for discharge 44 minutes mr mora is presented goal oriented benzo and opiate recovery aftercare in placed as per mr mora who is going to [facility] addiction facility - Physical Exam Results Vital Signs: Vital Signs Temperature 97.3 F L 01/29/20 08:46 Pulse Rate 81 01/29/20 08:46 Respiratory Rate 18 01/29/20 08:46 Blood Pressure 141/75 01/29/20 08:46 O2 Sat by Pulse Oximetry (%) 98 01/29/20 05:52 mr mora will monitor his bp and discuss treatment options with aftercare medical provider Pertinent Admission Physical Exam Findings: benzo and opiate withdrawal Laboratory Tests 01/26/20 01/26/20 01/26/20 12:20 12:20 12:20 WBC 7.8 RBC 4.03 Hgb 12.6 Hct 38.0 MCV 94.2 MCH 31.3 MCHC 33.2 RDW 14.8 Plt Count 237 MPV 9.1 Sodium 138 Potassium 4.5 Chloride 99 Carbon Dioxide 34 H Anion Gap 5 L BUN 18.7 H Creatinine 1.1 Est GFR (CKD-EPI)AfAm 93.47 Est GFR (CKD-EPI)NonAf 80.64 Random Glucose 73 L Calcium 9.0 Total Bilirubin 0.4 AST 45 H ALT 36 Alkaline Phosphatase 60 Total Protein 7.2 Albumin 3.6 Syphilis Serology Non-reactive COVID-19 ([facility]OCE) 01/26/20 12:20 WBC RBC Hgb Hct MCV MCH MCHC RDW Plt Count MPV Sodium Potassium Chloride Carbon Dioxide Anion Gap BUN Creatinine Est GFR (CKD-EPI)AfAm Est GFR (CKD-EPI)NonAf Random Glucose Calcium Total Bilirubin AST ALT Alkaline Phosphatase Total Protein Albumin Syphilis Serology COVID-19 ([facility]) Not detected lab noted - Treatment Hospital Course: Detox Protocol Followed, Detoxed Safely, Responded well, Discharged Condition Good, Rehab Referral Accepted Patient has Accepted a Rehab Referral to: [facility] - Medication Discharge Medications: Ambulatory Orders Albuterol Sulfate Inhaler - [Ventolin HFA Inhaler -] 2 inh PO Q4H PRN #1 inhaler 01/30/20 - Diagnosis (1) Substance induced mood disorder Status: Suspected (2) Benzodiazepine withdrawal without complication Status: Acute (3) Nicotine dependence, uncomplicated Status: Acute Qualifiers: Nicotine product type: cigarettes Qualified Code(s): F17.210 - Nicotine dependence, cigarettes, uncomplicated (4) Opioid dependence with withdrawal Status: Acute (5) Asthma Status: Chronic Qualifiers: Asthma severity: mild Asthma persistence: intermittent Asthma complication type: with status asthmaticus Qualified Code(s): J45.22 - Mild intermittent asthma with status asthmaticus (6) Hepatitis C Status: Chronic Qualifiers: Viral hepatitis chronicity: carrier Qualified Code(s): B18.2 - Chronic viral hepatitis C - AMA Did Patient Leave Against Medical Advice: No COWS (PN) - Opiate Withdrawal Resting Pulse: 1= [place] 81-100 Sweatin= No chills or Flushing Restless Observation: 0= Sits Still Pupil Size: 0= Normal to Room Light Bone or Joint Aches: 1= Mild Discomfort Runny Nose/ Eye Tearin= None GI Upset > 30mins: 0= None Tremor Observation of Outstretched Hands: 1= Tremor [place], Not Seen Yawning Observation: 0= None Anxiety or Irritability: 1=Feels Anxious/Irritable Goose Flesh Skin: 0=Smooth Skin COWS Score: 4
[2020-01-30] MEDS ORDERED: LORazepam 0.5 MG TABLET PO ONE (05:00)
[2020-01-30] MEDS ORDERED: METHADONE HCL 10 MG TABLET (FOR DETOX USE ONLY) PO ONE (10:00)
[2020-01-31] MEDS ORDERED: METHADONE HCL 5 MG TABLET (FOR DETOX USE ONLY) PO ONE (06:00)
== END 2020-01-29 16:17 | disposition home or self-care (01) | DRG 773 ==
LOC: YASAS 10:13 → Y3N 11:34
PROVIDERS: ADMIT Allergy & Immunology; ATTEND Allergy & Immunology
PROC: HZ2ZZZZ Detoxification Services for Substance Abuse Treatment (ICD-10-PCS; principal; 2020-01-26)
DX: F11.23 Opioid dependence with withdrawal (principal); F13.230 Sedative, hypnotic or anxiolytic dependence with withdrawal, uncomplicated; F14.20 Cocaine dependence, uncomplicated; F17.210 Nicotine dependence, cigarettes, uncomplicated; F19.280 Other psychoactive substance dependence with psychoactive substance-induced anxiety disorder; F19.282 Other psychoactive substance dependence with psychoactive substance-induced sleep disorder; F41.9 Anxiety disorder, unspecified; F43.10 Post-traumatic stress disorder, unspecified; G47.00 Insomnia, unspecified; J45.909 Unspecified asthma, uncomplicated; B18.2 Chronic viral hepatitis C; M54.5 Low back pain; G89.29 Other chronic pain; Z91.018 Allergy to other foods
CPT/HCPCS: 36415; 80053; 85027; 86780; 93005; 93010; U0003